=== PATIENT | male | born 1950 | race Caucasian/White ===

== ENCOUNTER → 2017-11-19 | Outpatient (CLI) | payer MEDICARE, OTHER | LOC: M WUC 15:33 | DX: M25.761 Osteophyte, right knee (principal) | CPT/HCPCS: 73564 ==

== ENCOUNTER 2023-08-13 10:05 | Observation (INO) | payer MEDICARE, OTHER ==
[~2023-08-13] VITALS: Ht 165.1 cm; Wt 116.0 kg
[~2023-08-13 10:05] MED LIST: ASCO500C3 PO; ASPI81TA26 PO; ATOR80TA59 PO; BISO5TAB14 PO; CENTTAB16 PO; LISI5TAB11 PO; METF500T13 PO; NITR0.4S14 SL; OMEG12003 PO; VITA100093 PO
[2023-08-13 11:33] LABS: BASO # 0.1 10^3/uL (0.0-0.2); BASO % 0.8 % (0.0-1.0); EOS # 0.3 10^3/uL (0.0-0.5); EOS % 2.6 % (0.0-3.0); HEMATOCRIT 45.1 % (42.0-52.0); HEMOGLOBIN 14.7 g/dl (13.5-17.5); LYMPH # 2.6 10^3/uL (1.5-5.0); LYMPH % 21.7 % (24.0-44.0); MEAN CORPUSCULAR HGB CONC 32.6 g/dl (32.0-36.5); MONO # 1.1 10^3/uL (0.0-0.8); MONO % 9.4 % (2.0-8.0); NEUTROPHILS # 7.8 10^3/uL (1.5-8.5); NEUTROPHILS % 65.2 % (36.0-66.0); PLATELET COUNT, AUTOMATED 278 10^3/uL (150-450)
[2023-08-13 11:47] LABS: ERYTHROCYTE SEDIMENTATION RATE 48 mm/hr (0-20)
[2023-08-13 12:02] LABS: BLOOD UREA NITROGEN 18 MG/DL (9-23); CALCIUM LEVEL 9.6 MG/DL (8.3-10.6); CARBON DIOXIDE LEVEL 24 MMOL/L (20-31); CHLORIDE LEVEL 106 MMOL/L (98-107); GLOMERULAR FILTRATION RATE > 60.0 (>42); GLUCOSE, FASTING 96 MG/DL (74-106); POTASSIUM SERUM 5.1 MMOL/L (3.5-5.1); SODIUM LEVEL 139 MMOL/L (136-145)
[2023-08-13 12:03] LABS: URIC ACID 8.4 MG/DL (3.7-9.2)
[2023-08-13 14:44] LABS: SOURCE, BODY FLUID RT KNEE; SOURCE, BODY FLUID CRYSTALS RT KNEE
[2023-08-13 14:45] LABS: SYNOVIAL FLUID COLOR RED (COLORLESS)
[2023-08-13] MEDS ORDERED: ACETAMINOPHEN TAB 650MG DOSE (2X325MG) PO PRN (14:45)
[2023-08-13] MEDS ORDERED: oxyCODONE 5MG TAB PO PRN (14:45)
[2023-08-13] MEDS ORDERED: MORPHINE 2 MG/ML 1ML VIAL IV PRN (14:45)
[2023-08-13 16:10] VITALS: BP 130/76; TEMP 99; O2SAT 98
[2023-08-13] MEDS ORDERED: MED REC IN PROGRESS XX SCH (16:20)
[2023-08-13] MEDS ORDERED: VITA30004 PO (18:06)
[2023-08-13] MEDS ORDERED: CENT1TAB PO (18:07)
[2023-08-13] MEDS ORDERED: ACET650T61 PO (18:08)
[2023-08-13] MEDS ORDERED: HOME MED LIST COMPLETE! XX SCH (18:15)
[2023-08-13 20:53] VITALS: BP 137/81; TEMP 98.8; O2SAT 96
[2023-08-13] MEDS: lisinopriL 5 MG TAB PO SCH (22:15)
[2023-08-14] MEDS: LR 1,000 ML IV SCH ×3 (00:25→16:15)
[2023-08-14 05:42] LABS: BASO # 0.1 10^3/uL (0.0-0.2); BASO % 1.1 % (0.0-1.0); EOS # 0.3 10^3/uL (0.0-0.5); EOS % 3.1 % (0.0-3.0); HEMATOCRIT 41.8 % (42.0-52.0); HEMOGLOBIN 13.3 g/dl (13.5-17.5); LYMPH # 2.3 10^3/uL (1.5-5.0); LYMPH % 25.4 % (24.0-44.0); MEAN CORPUSCULAR HEMOGLOBIN 31.8 pg (27.0-33.0); MEAN CORPUSCULAR HGB CONC 31.8 g/dl (32.0-36.5); MONO % 10.5 % (2.0-8.0); NEUTROPHILS # 5.4 10^3/uL (1.5-8.5); NEUTROPHILS % 59.7 % (36.0-66.0); PLATELET COUNT, AUTOMATED 221 10^3/uL (150-450); RED BLOOD COUNT 4.18 10^6/uL (4.30-6.10)
[2023-08-14 06:12] VITALS: BP 133/81; TEMP 97.9; O2SAT 97
[2023-08-14] MEDS: metFORMIN (GLUCOPHAGE) 500MG TAB PO SCH (08:21)
[2023-08-14] MEDS: ATORVASTATIN 20 MG TAB PO SCH (08:21)
[2023-08-14] MEDS: CelecoXIB (CeleBREX) 100 MG CAP PO SCH (08:21)
[2023-08-14] MEDS: ASCORBIC ACID 500 MG TAB PO SCH (08:22)
[2023-08-14] MEDS: bisoproloL fumarate 5 MG TAB PO SCH (08:22)
[2023-08-14] MEDS ORDERED: lisinopriL 5 MG TAB PO SCH (09:00)
[2023-08-14 14:00] VITALS: BP 110/64; TEMP 98.4; O2SAT 96
[2023-08-14 20:05] VITALS: BP 130/79
[2023-08-14] MEDS: lisinopriL 5 MG TAB PO SCH (20:12)
[2023-08-14 20:23] VITALS: TEMP 99.1; O2SAT 94
[2023-08-14 20:26] VITALS: TEMP 98
[2023-08-15 05:53] VITALS: BP 129/75; TEMP 98.1; O2SAT 98
[2023-08-15] MEDS ORDERED: OXYC-517 PO (07:07)
[2023-08-15 07:17] LABS: HEMATOCRIT 38.5 % (42.0-52.0); HEMOGLOBIN 12.8 g/dl (13.5-17.5); MEAN CORPUSCULAR HEMOGLOBIN 32.5 pg (27.0-33.0); MEAN CORPUSCULAR HGB CONC 33.2 g/dl (32.0-36.5); MEAN CORPUSCULAR VOLUME 97.7 fl (80.0-96.0); PLATELET COUNT, AUTOMATED 225 10^3/uL (150-450); RED BLOOD COUNT 3.94 10^6/uL (4.30-6.10); WHITE BLOOD COUNT 9.7 10^3/uL (4.0-10.0)
[2023-08-15 07:36] LABS: ERYTHROCYTE SEDIMENTATION RATE 60 mm/hr (0-20)
[2023-08-15] MEDS: ATORVASTATIN 20 MG TAB PO SCH (08:27)
[2023-08-15] MEDS: CelecoXIB (CeleBREX) 100 MG CAP PO SCH (08:28)
[2023-08-15 08:29] VITALS: BP 129/75
[2023-08-15] MEDS: ASCORBIC ACID 500 MG TAB PO SCH (08:29)
[2023-08-15] MEDS: metFORMIN (GLUCOPHAGE) 500MG TAB PO SCH (08:29)
[2023-08-15] MEDS: bisoproloL fumarate 5 MG TAB PO SCH (08:29)
== END 2023-08-15 10:30 | disposition home or self-care (01) ==
LOC: M ED 10:05 → M ED INP 10:06 → ENRESERV 15:54 → M MS5PR 16:10
PROVIDERS: ADMIT Orthopaedic Surgery; ATTEND Orthopaedic Surgery
DX: M25.561 Pain in right knee (principal); I10 Essential (primary) hypertension; E11.9 Type 2 diabetes mellitus without complications; I25.10 Atherosclerotic heart disease of native coronary artery without angina pectoris; Z79.84 Long term (current) use of oral hypoglycemic drugs; Z79.82 Long term (current) use of aspirin; Z79.899 Other long term (current) drug therapy
CPT/HCPCS: 20610; 36415; 73564; 80048; 84550; 85025; 85027; 85652; 86140; 86850; 86900; 86901; 87070; 87205; 87635; 89060; 93005; 99284; G0378

== ENCOUNTER → 2024-05-26 | Outpatient (CLI) | payer MEDICARE, OTHER ==
[~2024-05-26] MED LIST changes: +ACET650T61 PO; +CENT1TAB PO; +OXYC-517 PO; +VITA30004 PO
== END ==
LOC: M WHC 12:14
PROVIDERS: ATTEND Internal Medicine
DX: R60.9 Edema, unspecified (principal); I82.402 Acute embolism and thrombosis of unspecified deep veins of left lower extremity

== ENCOUNTER → 2025-05-16 | Outpatient (CLI) | payer MEDICARE, OTHER | LOC: M CARPUL 07:51 | PROVIDERS: ATTEND Physician Assistant | DX: I77.810 Thoracic aortic ectasia (principal); I08.0 Rheumatic disorders of both mitral and aortic valves; I37.1 Nonrheumatic pulmonary valve insufficiency ==